=== PATIENT | male | born 1970 | race Caucasian/White ===

== ENCOUNTER 2021-10-18 05:39 | Emergency (ER) | payer BC ==
[~2021-10-18] VITALS: Ht 182.9 cm; Wt 95.3 kg
[2021-10-18 06:45] VITALS: BP 145/84
== END 2021-10-18 06:49 | disposition home or self-care (01) ==
LOC: M.ERS 05:39
DX: U07.1 COVID-19 (principal); J12.82 Pneumonia due to coronavirus disease 2019